=== PATIENT | female | born 1950 | race Caucasian/White ===

== ENCOUNTER 2024-07-03 09:16 | Inpatient (IN) | payer OTHER ==
[~2024-07-03] VITALS: Ht 160 cm; Wt 95.3 kg
[2024-07-03 09:40] VITALS: BP 147/93; PULSE 120; RESP 18; TEMP 98; O2SAT 98
[2024-07-03 10:21] LABS: BASOPHILS % (AUTO) 0.9 % (0.0-2.0); EOSINOPHILS # (AUTO) 0.1 K/uL (0-0.4); EOSINOPHILS % (AUTO) 2.5 % (0.0-4.0); HEMATOCRIT 29.4 % (36-48); HEMOGLOBIN 9.5 g/dL (12.0-16.0); LYMPHOCYTES % (AUTO) 19.8 % (20.5-51.1); MEAN CORPUSCULAR HEMOGLOBIN 27 pg (27-31); MEAN CORPUSCULAR HGB CONC 32 g/dL (33-37); MEAN CORPUSCULAR VOLUME 82.9 fL (80-94); MONOCYTES # (AUTO) 0.7 K/uL (0.8-1.0); MONOCYTES % (AUTO) 13.2 % (1.7-9.3); NEUTROPHILS # (AUTO) 3.2 K/uL (1.8-7.7); NEUTROPHILS % (AUTO) 63.6 % (42.2-75.2); PLATELET COUNT (AUTO) 117 K/uL (140-450); RED BLOOD CELL COUNT(AUTO) 3.55 MIL/uL (4.20-5.40); RED CELL DISTRIBUTION WIDTH 22.5 % (11.6-13.7)
[2024-07-03 10:29] LABS: ANION GAP 8.4 (8-16); CALCIUM 8.8 mg/dL (8.5-10.1); CARBON DIOXIDE 34.5 mmol/L (21-32); CHLORIDE 100 mmol/L (98-107); GLUCOSE 131 mg/dL (74-106); POTASSIUM 3.9 mmol/L (3.5-5.1); SODIUM SERUM 139 mmol/L (136-145); UREA NITROGEN, BLOOD 14 mg/dL (7-18)
[2024-07-03 10:38] LABS: ALANINE AMINOTRANSFERASE 19 U/L (12-78); ALKALINE PHOSPHATASE 159 U/L (50-136); ASPARTATE AMINOTRANSFERASE 54 U/L (15-37); BILIRUBIN,DIRECT 0.5 mg/dL (0.0-0.3); TOTAL PROTEIN, SERUM 7.1 g/dL (6.4-8.2)
[2024-07-03 10:39] LABS: TOTAL BILIRUBIN 1.7 mg/dL (0.0-1.0)
[2024-07-03 10:45] LABS: LACTIC ACID 2.6 mmol/L (0.4-2.0)
[2024-07-03 11:14] LABS: INR 1.7 (0.8-1.2); PARTIAL THROMBOPLASTIN TIME 29.4 secs (22-35.6); PROTHROMBIN TIME 17.3 secs (10.8-13.4)
[2024-07-03] MEDS: ASPIRIN 81 MG TAB.CHEW PO ONE (11:15)
[2024-07-03] MEDS: DILTIAZEM 25 MG/5 ML VIAL IVP ONE (11:15)
[2024-07-03 11:31] LABS: APPEARANCE,URINE CLEAR (CLEAR); BILIRUBIN,URINE NEGATIVE (NEGATIVE); BLOOD, URINE 1+ (NEGATIVE); COLOR,URINE YELLOW (YELLOW); LEUKOCYTE ESTERASE ,URINE NEGATIVE (NEGATIVE); NITRITE, URINE NEGATIVE (NEGATIVE); PH,URINE 7.5 (5.0-9.0); PROTEIN,URINE NEGATIVE (NEGATIVE); UGLUCOSE NEGATIVE (NEGATIVE)
[2024-07-03 11:44] LABS: BACTERIA,URINE FEW /HPF (None Seen); SQUAMOUS EPITHELIAL CELL,UR 0-3 (FEW) /LPF (0-3 (FEW)); WBC,URINE 0-5 /HPF (0-5)
[2024-07-03] MEDS ORDERED: OXYB5TAB44 PO (12:41)
[2024-07-03] MEDS ORDERED: FURO-570 PO (12:41)
[2024-07-03] MEDS ORDERED: DIGO0.122 PO (12:41)
[2024-07-03] MEDS ORDERED: APIX5TAB PO (12:41)
[2024-07-03] MEDS ORDERED: HYDR-5071 PO (12:41)
[2024-07-03] MEDS ORDERED: PROP20TA29 PO (12:41)
[2024-07-03] MEDS ORDERED: ONDA-188 PO (12:41)
[2024-07-03] MEDS ORDERED: OMEP40EC23 PO (12:41)
[2024-07-03] MEDS ORDERED: CHLO25TA33 PO (12:42)
[2024-07-03] MEDS ORDERED: SPIR50TA PO (12:43)
[2024-07-03 14:00] VITALS: PULSE 61; RESP 18; O2SAT 98
[2024-07-03] MEDS ORDERED: ACETAMINOPHEN 325 MG TAB PO PRN (15:40)
[2024-07-03] MEDS ORDERED: ZOLPIDEM 5 MG TAB PO PRN (15:40)
[2024-07-03] MEDS ORDERED: LORazepam 1 MG TAB PO PRN (15:40)
[2024-07-03] MEDS ORDERED: KCL 20 MEQ IN 100 mL PREMIX 200 ML IV PRN (15:40)
[2024-07-03] MEDS ORDERED: MAGNESIUM OXIDE 400 MG TAB PO PRN (15:40)
[2024-07-03] MEDS ORDERED: DILTIAZEM 25 MG/5 ML VIAL IVP PRN (15:55)
[2024-07-03 16:00] VITALS: BP 113/75; PULSE 112; PULSE 71; RESP 18; TEMP 96.9; O2SAT 96
[2024-07-03] MEDS: FUROSEMIDE 40 MG/4 ML VIAL IVP SCH (16:25)
[2024-07-03 20:00] VITALS: BP 121/67; PULSE 112; PULSE 76; RESP 18; TEMP 97; O2SAT 99
[2024-07-03] MEDS: SPIRONOLACTONE 50 MG TAB PO SCH (20:13)
[2024-07-03] MEDS: APIXABAN 2.5 MG TAB PO SCH (20:15)
[2024-07-04] VITALS: BP 149/71; PULSE 90; PULSE 92; RESP 18; TEMP 97.2; O2SAT 97
[2024-07-04 04:00] VITALS: BP 114/71; PULSE 68; PULSE 99; RESP 18; TEMP 97; O2SAT 99
[2024-07-04 05:24] LABS: BASOPHILS % (AUTO) 0.6 % (0.0-2.0); EOSINOPHILS # (AUTO) 0.1 K/uL (0-0.4); EOSINOPHILS % (AUTO) 2.7 % (0.0-4.0); HEMATOCRIT 27.6 % (36-48); HEMOGLOBIN 8.9 g/dL (12.0-16.0); LYMPHOCYTES # (AUTO) 1.1 K/uL (2.5-16.5); LYMPHOCYTES % (AUTO) 22.3 % (20.5-51.1); MEAN CORPUSCULAR HEMOGLOBIN 27 pg (27-31); MEAN CORPUSCULAR HGB CONC 32 g/dL (33-37); MONOCYTES # (AUTO) 0.8 K/uL (0.8-1.0); MONOCYTES % (AUTO) 16.1 % (1.7-9.3); NEUTROPHILS # (AUTO) 2.9 K/uL (1.8-7.7); NEUTROPHILS % (AUTO) 58.3 % (42.2-75.2); PLATELET COUNT (AUTO) 104 K/uL (140-450); RED BLOOD CELL COUNT(AUTO) 3.32 MIL/uL (4.20-5.40); RED CELL DISTRIBUTION WIDTH 22.6 % (11.6-13.7); WHITE BLOOD COUNT (AUTO) 4.9 K/uL (4.8-10.8)
[2024-07-04 06:44] LABS: ALANINE AMINOTRANSFERASE 13 U/L (12-78); ALKALINE PHOSPHATASE 131 U/L (50-136); ANION GAP 7.8 (8-16); ASPARTATE AMINOTRANSFERASE 29 U/L (15-37); CALCIUM 8.9 mg/dL (8.5-10.1); CARBON DIOXIDE 34.5 mmol/L (21-32); CHLORIDE 100 mmol/L (98-107); CREATININE 1.1 mg/dL (0.6-1.3); GLUCOSE 147 mg/dL (74-106); MAGNESIUM 1.4 mg/dL (1.8-2.4); POTASSIUM 3.3 mmol/L (3.5-5.1); SODIUM SERUM 139 mmol/L (136-145); TOTAL BILIRUBIN 1.7 mg/dL (0.0-1.0); TOTAL PROTEIN, SERUM 6.9 g/dL (6.4-8.2); UREA NITROGEN, BLOOD 12 mg/dL (7-18)
[2024-07-04 08:00] VITALS: BP 147/96; PULSE 110; PULSE 120; RESP 18; TEMP 96.9; O2SAT 99
[2024-07-04] MEDS: POTASSIUM CHLORIDE 10 MEQ TABER PO PRN (08:35)
[2024-07-04] MEDS: OXYBUTYNIN 5 MG TAB PO SCH (08:36)
[2024-07-04] MEDS: DOCUSATE SODIUM 100 MG GELCAP PO SCH (08:36)
[2024-07-04] MEDS: DIGOXIN 0.125 MG TAB PO SCH (08:38)
[2024-07-04] MEDS: HYDROcodone/APAP 5/325 MG 1 TAB TAB PO PRN (08:38)
[2024-07-04] MEDS: MAG SULF 2000 MG/WATER PREMIX 50 ML IV PRN (08:39)
[2024-07-04 12:00] VITALS: BP 134/63; PULSE 104; PULSE 109; RESP 18; TEMP 97; O2SAT 98
[2024-07-04] MEDS ORDERED: FUROSEMIDE 40 MG/4 ML VIAL IVP ONE (13:55)
[2024-07-04] MEDS ORDERED: METOPROLOL 50 MG TAB PO ONE (13:55)
[2024-07-04] MEDS: POTASSIUM CHLORIDE 10 MEQ TABER PO SCH (14:10)
[2024-07-04] MEDS: FUROSEMIDE 40 MG/4 ML VIAL IVP SCH (14:51)
[2024-07-04] MEDS: METOPROLOL 50 MG TAB PO SCH (14:51)
[2024-07-04] MEDS: DIGOXIN 0.25 MG/ML AMP IV SCH (14:53)
[2024-07-04 16:00] VITALS: BP 147/76; PULSE 67; PULSE 91; RESP 18; TEMP 96.9; O2SAT 98
[2024-07-04] MEDS: SODIUM FERRIC GLUCONATE 125 MG in NACL 0.9% 100 ML IV SCH (18:41)
[2024-07-04 20:00] VITALS: BP 138/61; PULSE 64; PULSE 77; RESP 18; TEMP 97.3; O2SAT 98
[2024-07-05] VITALS: BP 105/58; PULSE 63; PULSE 92; RESP 18; TEMP 97.5; O2SAT 97
[2024-07-05 04:00] VITALS: BP 121/68; PULSE 71; PULSE 92; RESP 18; TEMP 97; O2SAT 97
[2024-07-05 06:02] LABS: BASOPHILS % (AUTO) 0.5 % (0.0-2.0); EOSINOPHILS # (AUTO) 0.1 K/uL (0-0.4); EOSINOPHILS % (AUTO) 2.6 % (0.0-4.0); HEMATOCRIT 27.7 % (36-48); HEMOGLOBIN 8.9 g/dL (12.0-16.0); LYMPHOCYTES # (AUTO) 1.2 K/uL (2.5-16.5); LYMPHOCYTES % (AUTO) 20.2 % (20.5-51.1); MEAN CORPUSCULAR HEMOGLOBIN 27 pg (27-31); MEAN CORPUSCULAR HGB CONC 32 g/dL (33-37); MEAN CORPUSCULAR VOLUME 83.3 fL (80-94); MONOCYTES % (AUTO) 16.7 % (1.7-9.3); NEUTROPHILS # (AUTO) 3.4 K/uL (1.8-7.7); PLATELET COUNT (AUTO) 106 K/uL (140-450); RED BLOOD CELL COUNT(AUTO) 3.32 MIL/uL (4.20-5.40); RED CELL DISTRIBUTION WIDTH 22.8 % (11.6-13.7); WHITE BLOOD COUNT (AUTO) 5.7 K/uL (4.8-10.8)
[2024-07-05 08:00] VITALS: BP 115/56; PULSE 69; PULSE 71; RESP 18; TEMP 98; O2SAT 95
[2024-07-05 08:15] LABS: ALANINE AMINOTRANSFERASE 17 U/L (12-78); ALBUMIN 1.8 g/dL (3.4-5.0); ALKALINE PHOSPHATASE 134 U/L (50-136); ANION GAP 8.6 (8-16); ASPARTATE AMINOTRANSFERASE 23 U/L (15-37); CALCIUM 9.1 mg/dL (8.5-10.1); CARBON DIOXIDE 33.6 mmol/L (21-32); CHLORIDE 100 mmol/L (98-107); GLUCOSE 167 mg/dL (74-106); MAGNESIUM 1.7 mg/dL (1.8-2.4); POTASSIUM 4.2 mmol/L (3.5-5.1); SODIUM SERUM 138 mmol/L (136-145); TOTAL BILIRUBIN 1.2 mg/dL (0.0-1.0); TOTAL PROTEIN, SERUM 6.5 g/dL (6.4-8.2); UREA NITROGEN, BLOOD 13 mg/dL (7-18)
[2024-07-05] MEDS: DIGOXIN 0.25 MG TAB PO SCH (08:52)
[2024-07-05 12:00] VITALS: BP 115/56; PULSE 70; PULSE 79; RESP 18; TEMP 96.9; O2SAT 99
[2024-07-05] MEDS ORDERED: APIX5TAB PO (14:23)
[2024-07-05 14:25] VITALS: BP 115/56; PULSE 70; RESP 18; TEMP 96.9
== END 2024-07-05 16:15 | disposition home or self-care (01) | DRG 291 ==
LOC: MED 09:16 → MTU 12:24
PROVIDERS: ADMIT Internal Medicine; ATTEND Internal Medicine
DX: I13.0 Hypertensive heart and chronic kidney disease with heart failure and stage 1 through stage 4 chronic kidney disease, or unspecified chronic kidney disease (principal); E43 Unspecified severe protein-calorie malnutrition; I50.33 Acute on chronic diastolic (congestive) heart failure; I48.20 Chronic atrial fibrillation, unspecified; E66.01 Morbid (severe) obesity due to excess calories; E11.9 Type 2 diabetes mellitus without complications; K43.9 Ventral hernia without obstruction or gangrene; D64.9 Anemia, unspecified; E87.6 Hypokalemia; E83.42 Hypomagnesemia; E78.5 Hyperlipidemia, unspecified; K74.60 Unspecified cirrhosis of liver; E11.22 Type 2 diabetes mellitus with diabetic chronic kidney disease; N18.30 Chronic kidney disease, stage 3 unspecified; Z79.01 Long term (current) use of anticoagulants; Z79.899 Other long term (current) drug therapy; Z86.73 Personal history of transient ischemic attack (TIA), and cerebral infarction without residual deficits; Z85.038 Personal history of other malignant neoplasm of large intestine; Z68.37 Body mass index [BMI] 37.0-37.9, adult
CPT/HCPCS: 36415; 70450; 71045; 80048; 80053; 80076; 80162; 81001; 83540; 83605; 83735; 83880; 84484; 85025; 85045; 85610; 85730; 87040; 87081; 87086; 93005; 93970; 96374; 97110; 97116; 97163-GP; 97530; 99285; J1160; J1940; J2916; J3475; J3490; Q0092